=== PATIENT | female | born 1980 | race African-American/Black ===

== ENCOUNTER 2018-01-06 10:22 | Emergency (ER) | payer OTHER ==
[~2018-01-06] VITALS: Ht 162.6 cm; Wt 74.8 kg
[2018-01-06 10:25] VITALS: BP 101/73
[2018-01-06] MEDS ORDERED: NAPROSYN500 MG PO (11:17)
== END 2018-01-06 11:30 | disposition home or self-care (01) ==
LOC: ER 10:22
DX: S93.691A Other sprain of right foot, initial encounter (principal); F17.210 Nicotine dependence, cigarettes, uncomplicated; W10.9XXA Fall (on) (from) unspecified stairs and steps, initial encounter; Y92.89 Other specified places as the place of occurrence of the external cause; Y93.89 Activity, other specified; Y99.8 Other external cause status

== ENCOUNTER 2018-07-02 08:05 | Emergency (ER) | payer OTHER ==
[~2018-07-02] VITALS: Ht 162.6 cm; Wt 74.8 kg
[~2018-07-02 08:05] MED LIST: NAPROSYN500 MG PO
[2018-07-02 10:20] VITALS: BP 109/75
== END 2018-07-02 10:21 | disposition home or self-care (01) ==
LOC: ER 08:05
DX: R51 Headache (principal); F17.210 Nicotine dependence, cigarettes, uncomplicated

== ENCOUNTER 2019-06-10 08:52 | Emergency (ER) | payer OTHER ==
[~2019-06-10] VITALS: Ht 162.6 cm; Wt 74.8 kg
[2019-06-10 09:21] LABS: URINE BILIRUBIN NEGATIVE (Negative); URINE BLOOD NEGATIVE (Negative); URINE CLARITY CLEAR; URINE COLOR YELLOW; URINE GLUCOSE-RANDOM* NEGATIVE (Negative); URINE KETONES NEGATIVE (Negative); URINE LEUKOCYTES-REFLEX NEGATIVE (Negative); URINE NITRITE-REFLEX NEGATIVE (Negative); URINE PROTEIN (DIPSTICK) NEGATIVE (Negative)
[2019-06-10 10:36] LABS: ABSOLUTE NEUTROPHILS 2.6 thou/uL (1.4-8.2); BASOPHILS 0.6 % (0.0-2.0); EOSINOPHILS 2.3 % (0.0-3.0); HEMOGLOBIN 13.9 gm/dL (12.0-15.0); LYMPHOCYTES 47.9 % (24.0-44.0); MCH 30.6 pg (26.0-34.0); MCHC 33.1 g/dL (28.0-37.0); MCV 92.5 fL (80.0-100.0); MONOCYTES 6.3 % (1.0-8.0); PLATELET COUNT 277 thou/uL (150-400); POLYS 42.9 % (36.0-66.0); RBC 4.54 mil/uL (4.20-5.00); RDW 13.4 % (10.5-14.5)
[2019-06-10 10:39] LABS: CALCIUM 8.9 mg/dL (8.5-10.1); CREATININE 0.7 mg/dL (0.6-1.0); POTASSIUM 3.8 mmol/L (3.5-5.1)
[2019-06-10 11:13] VITALS: BP 121/80
== END 2019-06-10 11:16 | disposition home or self-care (01) ==
LOC: ER 08:52
PROVIDERS: Emergency Medicine
DX: R51 Headache (principal); R39.15 Urgency of urination; E86.0 Dehydration; F17.210 Nicotine dependence, cigarettes, uncomplicated